=== PATIENT | female | born 1950 | race Caucasian/White ===

== ENCOUNTER 2019-02-26 08:30 | Emergency (ER) | payer BC ==
[~2019-02-26] VITALS: Ht 165.1 cm; Wt 86.2 kg
[2019-02-26 09:01] VITALS: BP 124/68; Ht 165.1 cm; Wt 86.2 kg
== END 2019-02-26 11:16 | disposition home or self-care (01) ==
LOC: ED 08:30 → EDBD 08:30 → ED 11:16
DX: J10.1 Influenza due to other identified influenza virus with other respiratory manifestations (principal); E11.9 Type 2 diabetes mellitus without complications; I10 Essential (primary) hypertension
CPT/HCPCS: 82962; 87804